=== PATIENT | female | born 1990 | race Caucasian/White ===

== ENCOUNTER 2018-07-24 12:48 | Emergency (ER) | payer OTHER ==
[2018-07-24 13:32] VITALS: BP 109/70
--- NOTE | 2018-07-24 13:35 | UC ---
Lower Extremity/Ankle HPI - HPI Summary HPI Summary: 28 year old female with no prior ankle injuries, surgeries, presents after jumping into swimming pool yesterday, unsure of mechanism of injury, immediate pain and swelling afterwards, not improved today. Worse with ambulation. - History of Current Complaint Stated Complaint: LT ANKLE PAIN Time Seen by Provider: 07/24/18 13:20 Hx Obtained From: Patient Hx Last Menstrual Period: pt on depo and does not get a menses ?: No Onset/Duration: Gradual Onset, Lasting Days - x 24 hours Severity Initially: Moderate Severity Currently: Moderate Aggravating Factor(s): Standing, Ambulation Alleviating Factor(s): Rest Able to Bear Weight: Yes - very painful - Allergies/Home Medications Allergies/Adverse Reactions: Allergies Allergy/AdvReac Type Severity Reaction Status Date / Time No Known Allergies Allergy Verified 07/24/18 13:28 Home Medications: Home Medications NK [No Home Medications Reported] 07/24/18 [History Confirmed 07/24/18] PMH/Surg Hx/FS Hx/Imm Hx Previously Healthy: Yes - no prior ankles injuries - Surgical History Surgical History: Yes Surgery Procedure, Year, and Place: C-SECT x 2 - Social History Alcohol Use: Rare Substance Use Type: None Smoking Status (MU): Heavy Every Day Tobacco Smoker Type: Cigarettes Amount Used/How Often: 1/2 PPD Length of Time of Smoking/Using Tobacco: 6 YRS Have You Smoked in the Last Year: Yes Review of Systems All Other Systems Reviewed And Are Negative: Yes Musculoskeletal: Positive: Arthralgia, Decreased ROM, Edema, Myalgia Psychological: Positive: Negative Is Patient Immunocompromised?: No Physical Exam - Summary Physical Exam Summary: + squeeze test, + dorsiflexion/ ext rotation test Triage Information Reviewed: Yes Appearance: Well-Appearing, Well-Nourished, Pain Distress - mild to moderate Vital Signs Reviewed: Yes Eyes: Positive: Conjunctiva Clear Musculoskeletal: Positive: ROM Limited @ - due to pain all directed L ankle joint, Edema @ - anterior mortise, lateral mal. non-tender over lat/ med malleolus, Other: - PT, DP 2+ TTP over prox metatarsals. Negative: Strength Intact - not tested due to pain, ROM in all directions, decreased d/t pain Neurological Exam: Normal Neurological: Positive: Other: - SITLT distal to L ankle Psychological Exam: Normal Skin: Positive: Other - no open wounds, sores, skin intact. minimal edema, no ecchymosis seen Lower Extremity Course/Dx - Course Course Of Treatment: radiograph- negative, likely high ankle sprain, discussed NWB, patient refused, refused crutches, will give walking boot for protection, follow up with ortho , RICE, NSAIDs - Differential Dx/Diagnosis Differential Diagnosis/HQI/PQRI: Compartment Syndrome, Osteomyelitis, Sprain, Strain, Tendonitis Provider Diagnosis: High ankle sprain of left lower extremity Discharge - Sign-Out/Discharge Documenting (check all that apply): Patient Departure All imaging exams completed and their final reports reviewed: Yes - Discharge Plan Condition: Good Disposition: HOME Patient Education Materials: Ankle Sprain (ED) Forms: *Work Release Referrals: No Primary Care Phys,NOPCP [Primary Care Provider] - Additional Instructions: - Weight bearing as tolerated, please use crutches to increase comfort - Walking boot at all times when up, ambulatory. May removed for showers (non- weight bearing), sleeping, resting - Motrin/ Ibuprofen ever 8 hours x 2 days, 600mg - Rest, Ice, elevate - FOllow up with orthopedics within 5-7 days for repeat evaluation or sooner if no improvement - Billing Disposition and Condition Condition: GOOD Disposition: Home
== END 2018-07-24 14:31 | disposition home or self-care (01) ==
LOC: UCCORT 12:48
DX: S93.402A Sprain of unspecified ligament of left ankle, initial encounter (principal); W16.512A Jumping or diving into swimming pool striking water surface causing other injury, initial encounter; Y92.9 Unspecified place or not applicable; F17.210 Nicotine dependence, cigarettes, uncomplicated
CPT/HCPCS: 99212; G0463

== ENCOUNTER 2018-10-02 11:00 | Emergency (ER) | payer OTHER ==
[2018-10-02 11:49] VITALS: BP 101/57
--- NOTE | 2018-10-02 14:07 | UC ---
Complaint Female HPI - HPI Summary HPI Summary: Pt presents with c/o of worsening, abdominal/pelvic pain and cramping, vaginal discharge over the last "few days". Pt reports that she had a uterine ablation by Dr. Wilson 4 weeks ago for "heavy periods and blood clots". Pt states that over the last "few day", her pelvic pain and cramping have worsened and now she is "bleeding like a period" and going through 4 maxi pads per day. Pt called Dr. Wilson but was told to go to ER. - History Of Current Complaint Chief Complaint: UCGU Stated Complaint: CRAMPING,S/P ABLASION 1 MTH AGO Time Seen by Provider: 10/02/18 12:26 Hx Obtained From: Patient Hx Last Menstrual Period: s/p uterine ablation ?: No Onset/Duration: Gradual Onset, Lasting Days, Still Present, Worse Since - osnet Timing: Constant Severity Initially: Mild Severity Currently: Moderate Pain Intensity: 5 Pain Scale Used: 0-10 Numeric Character: Sharp, Dull, Cramping Aggravating Factor(s): Nothing Alleviating Factor(s): Nothing Associated Signs And Symptoms: Positive: Vaginal Bleeding/Discharge - Risk Factors Ectopic Risk Factor: Maternal Age ^ 30 Ovarian Torsion Risk Factor: Reproductive Age - Allergies/Home Medications Allergies/Adverse Reactions: Allergies Allergy/AdvReac Type Severity Reaction Status Date / Time No Known Allergies Allergy Verified 10/02/18 11:21 PMH/Surg Hx/FS Hx/Imm Hx Previously Healthy: Yes - Surgical History Surgical History: Yes Surgery Procedure, Year, and Place: Uterine Ablation, 2018, [place]; C-Sections , 2015 2010 2007, [place] - Family History Known Family History: Positive: Cardiac Disease - Social History Occupation: Employed Full-time Lives: With Family Alcohol Use: Rare Substance Use Type: None Smoking Status (MU): Heavy Every Day Tobacco Smoker Type: Cigarettes Amount Used/How Often: 1/2 PPD Length of Time of Smoking/Using Tobacco: Since Age 14 Have You Smoked in the Last Year: Yes - Immunization History Vaccination Up to Date: Yes Review of Systems All Other Systems Reviewed And Are Negative: Yes Constitutional: Positive: Negative Skin: Positive: Negative Eyes: Positive: Negative ENT: Positive: Negative Respiratory: Positive: Negative Cardiovascular: Positive: Negative Gastrointestinal: Positive: Abdominal Pain Genitourinary: Positive: Vaginal/Penile Discharge, Vaginal/Penile Tenderness, Abnormal Bleeding, Other - recent hx of uterine ablation Motor: Positive: Negative Neurovascular: Positive: Negative Musculoskeletal: Positive: Negative Neurological: Positive: Negative Psychological: Positive: Negative Is Patient Immunocompromised?: No Physical Exam Triage Information Reviewed: Yes Appearance: Pain Distress Vital Signs: Initial Vital Signs Temp 98.4 F 10/02/18 11:17 Pulse 86 10/02/18 11:17 Resp 16 10/02/18 11:17 BP 113/67 10/02/18 11:17 Pulse Ox 99 10/02/18 11:17 Vital Signs Reviewed: Yes Eye Exam: Normal ENT Exam: Normal Dental Exam: Normal Neck exam: Normal Respiratory Exam: Normal Cardiovascular Exam: Normal Abdomen Description: Positive: Other: - pelvic tenderness Bowel Sounds: Positive: Present Musculoskeletal Exam: Normal Neurological Exam: Normal Psychological Exam: Normal Skin Exam: Normal Diagnostics - Radiology No standard instances Radiology Interpretation Completed By: Radiologist - IMPRESSION: FLUID IS NOTED WITHIN THE ENDOMETRIAL CAVITY. THE ENDOMETRIAL STRIPE MEASURES APPROXIMATELY 0.5 CM. Complaint Female Dx - Course Course Of Treatment: I discussed the transvaginal report with pt and the UA results. Pt left and I had not sent in antibiotic prescription prior to departure. I sent in antibiotics for possible UTI as UA had 3+ leuks. - Differential Dx/Diagnosis Differential Diagnosis/HQI/PQRI: Urinary Tract Infection Provider Diagnosis: Abnormal vaginal bleeding, UTI (urinary tract infection) Discharge - Sign-Out/Discharge Documenting (check all that apply): Patient Departure All imaging exams completed and their final reports reviewed: Yes - Discharge Plan Condition: Stable Disposition: HOME Prescriptions: Cephalexin CAP* [Keflex 500 CAP*] 500 mg PO Q8H #21 cap Patient Education Materials: Dysfunctional Uterine Bleeding (ED), Urinary Tract Infection in Women (ED) Forms: *Work Release Referrals: Scott Wilson MD [Medical Doctor] - As Soon As Possible Patito Francois NP [Primary Care Provider] - If Needed Additional Instructions: IF YOUR SYMPTOMS WORSEN, PLEASE GO DIRECTLY TO THE CLOSEST EMERGENCY ROOM. - Billing Disposition and Condition Condition: STABLE Disposition: Home
== END 2018-10-02 13:28 | disposition home or self-care (01) ==
LOC: UCCORT 11:00
DX: N93.9 Abnormal uterine and vaginal bleeding, unspecified (principal); N39.0 Urinary tract infection, site not specified; Z87.42 Personal history of other diseases of the female genital tract; Z98.890 Other specified postprocedural states; F17.210 Nicotine dependence, cigarettes, uncomplicated
CPT/HCPCS: 76830; 81003; 84702; 87086; 99212; G0463